=== PATIENT | male | born 2000 | race Caucasian/White ===

== ENCOUNTER 2020-05-08 14:44 | Outpatient (CLI) | payer BC, OTHER ==
[2020-05-08 18:14] LABS: #Basophils 0.1 thou/uL (0.0-0.2); #Eosinphils 0.2 thou/uL (0.0-0.7); #Lymphocytes 2.9 thou/uL (1.20-3.40); #Monocytes 0.7 thou/uL (0.11-0.59); #Neutrophils 4.2 thou/uL (1.40-6.50); %Basophils 0.9 % (0.0-1.0); %Eosinophils 3.1 % (0.0-10.0); %Lymphocytes 35.3 % (28.0-48.0); %Monocytes 8.4 % (0.0-4.0); %Neutrophils 52.2 % (31.0-61.0); Hemoglobin 15.3 g/dL (14.0-18.0); Mean Corpuscular HGB CONC 33.7 g/dL (32.0-36.0); Mean Corpuscular Hemoglobin 30.5 pg (25.0-35.0); Mean Corpuscular Volume 90.3 fL (78.0-98.0); Mean Platelet Volume 8.5 fL (7.4-10.4); Platelet Count 237 thou/uL (130-400); RBC Distribution Width 11.4 % (11.5-14.5); Red Blood Cell (RBC) Count 5.02 mill/uL (4.00-5.20); White Blood Cell (WBC) Count 8.1 thou/uL (4.8-10.8)
[2020-05-09 12:55] LABS: SARS-CoV-2 MS2 Positive; SARS-CoV-2 N Gene Negative; SARS-CoV-2 S Gene Negative; SARS-CoV-2 orf1ab Negative
== END 2020-05-08 14:45 | disposition home or self-care (01) ==
LOC: LABBT 14:44
PROVIDERS: ATTEND Orthopaedic Surgery Hand Surgery
DX: Z01.812 Encounter for preprocedural laboratory examination (principal); Z11.59 Encounter for screening for other viral diseases; S63.641A Sprain of metacarpophalangeal joint of right thumb, initial encounter
CPT/HCPCS: 85025; 87635; U0003

== ENCOUNTER 2020-05-13 12:15 | Day surgery (SDC) | payer BC ==
[2020-05-09 09:31] VITALS: BMI 26.3
[2020-05-13] MEDS ORDERED: Dexamethasone 20 MG/5 ML VIAL ONE (13:14)
[2020-05-13] MEDS ORDERED: Lidocaine 1% PF 5 ML VIAL ONE (13:14)
[2020-05-13] MEDS ORDERED: Ketorolac Tromethamine 30 MG/ML VIAL ONE ×2 (13:14→20:06)
[2020-05-13] MEDS ORDERED: PROPOFOL 200 MG/20 ML VIAL ONE (13:14)
[2020-05-13] MEDS ORDERED: Ondansetron PF 4 MG/2 ML Vial ONE (13:14)
[2020-05-13] MEDS ORDERED: Fentanyl 100 MCG/2 ML VIAL ONE ×4 (17:26→20:39)
[2020-05-13] MEDS ORDERED: Bupivacaine PF 0.5% 30 ML VIAL ONE (17:27)
[2020-05-13] MEDS ORDERED: Thrombin 5000 UNITS/5 ML VIAL ONE (17:28)
[2020-05-13] MEDS ORDERED: Bacitracin Zinc Ointment 30 gm TUBE ONE ×2 (17:28)
[2020-05-13] MEDS ORDERED: Sodium Chloride 0.9% 10 ML ONE (17:32)
[2020-05-13] MEDS ORDERED: Midazolam HCl 2 mg/2 ml Vial ONE (17:36)
--- NOTE | 2020-05-13 19:38 | RAD ---
RIGHT HAND TWO VIEWS: 05/13/20 HISTORY: Intraoperative films. These films show anchor placement at the base of the proximal phalanx of the thumb. IMPRESSION: [place] placement. POS: CAPRICE
[2020-05-13] MEDS ORDERED: HYDROcodone/Acetaminophen 5/325 mg Tablet ONE (20:49)
[2020-05-13] MEDS ORDERED: Promethazine HCl 25 MG/ML VIAL ONE (21:13)
--- NOTE | 2020-05-14 12:27 | OP ---
DATE OF PROCEDURE: 05/13/2020 PREOPERATIVE DIAGNOSIS: Complete ulnar collateral ligament tear, thumb. POSTOPERATIVE DIAGNOSES: 1. Complete ulnar collateral ligament tear, thumb. 2. Fine complete avulsion of retracted Stener lesion, contracted with disorganization include capsular rupture, and aponeurosis partial tear as well as retinacular tear. PROCEDURES PERFORMED: Repair of retinaculum to ulnar collateral ligament reconstruction using combination of suture over button for internal splint and large Mitek mini anchor with C-arm and final joint pinning. TOURNIQUET TIME: 70 minutes. DESCRIPTION OF PROCEDURE: After successful general endotracheal anesthesia, the limb was prepped and draped. The patient had a 20 mL of 0.5% Marcaine without epinephrine, metacarpophalangeal block. We outlined a curvilinear incision beginning slightly dorsal on the 1 cm proximal to the metacarpal head and then coursing 1 cm past the joint, but slightly more volar. This curved incision was carried to the skin and subcutaneous tissue, identified both the dorsal and palmar nerves and dissecting well away from the field, but immediately we could see blood and disorganization. The retinaculum was torn for 1 cm around the area, where the incomplete capsule and ulnar collateral ligament had retracted and was through a rupture and aponeurosis of the adductor. It took some time to separate them. Then, we placed a heavy suture in the large bulky ulnar collateral ligament mass after trimming the distal 1 mm to make it freshened. We held this for approximately 10 minutes until we got to unfold from its retracted area to a point we could reach the most proximal 5 mm of the base of the ulnar aspect of the proximal phalanx. We then created a trough that was 3 mm deep, 3 mm wide, and 8 mm long. We weaved a Conner stitch 3-0 Prolene with exited in the dorsal and palmar aspect of the mass at its edge and then we placed an anchor in the distal portion of this trough, but central and then placed this in appropriate position for tying in the center portion of the mass. We then placed the 2 Anibal needles, passed them across one side of the proximal phalanx, it was elevated under C-arm supervision, there was nothing in the joints and the anchor was not in the joint either. We ulnarly deviated the thumb approximately 10 to 15 degrees until the mass and the tendon were tucked into the trough, pinned the joint in this position and then with the mass still tucked in trough, tied the string over the button and then, we tried the FiberWire over the anchor was tied. There was no gap seen between the tendon and the trough. No visible sutures seen except on the outside of the construct for the anchor suture and the wire was in excellent position with the thumb in excellent position. We then repaired the adductor with a full Prolene, we repaired the retinaculum with 4-0 Prolene what was left of it, released the tourniquet, and then obtained hemostasis. We closed the skin with a running 4-0 Monocryl subcuticular closure and used Steri-Strips for the epidermal closure. Bulky dressing applied with a thumb spica splint and slight deviation of the thumb towards the index finger to protect the repair. The wire was cut slightly below the skin for removal in four weeks. Job ID: [id number]
== END 2020-05-13 22:00 | disposition home or self-care (01) ==
LOC: SDC 12:15
PROVIDERS: ATTEND Orthopaedic Surgery Hand Surgery
PROC: 0LS70ZZ Reposition Right Hand Tendon, Open Approach (ICD-10-PCS; principal; 2020-05-13)
DX: S63.418A Traumatic rupture of collateral ligament of other finger at metacarpophalangeal and interphalangeal joint, initial encounter (principal)
CPT/HCPCS: 76000; C1713; J0690; J1100; J1885; J2250; J2405; J2550; J2704; J3010; J3490; S0020